=== PATIENT | female | born 1980 | race Caucasian/White ===

== ENCOUNTER 2018-07-25 12:16 | Emergency (ER) | payer OTHER ==
[~2018-07-25] VITALS: Ht 144.8 cm; Wt 74.4 kg
[2018-07-25 12:23] VITALS: Ht 144.8 cm; Wt 74.4 kg
[2018-07-25 13:14] LABS: BASOPHIL % 0.2 % (0-2)
[2018-07-25 13:17] LABS: PLATELET COUNT 388 x10^3mcL (130-400); RED CELL DISTRIBUTION WIDTH 16.1 % (11.5-14.5)
[2018-07-25 13:25] LABS: CALCIUM 8.7 mg/dL (8.5-10.1); CARBON DIOXIDE 23.8 mmol/L (21-32); CHLORIDE SERUM 105 mmol/L (98-107); CREATININE SERUM 0.6 mg/dL (0.6-1.0); GFR1 > 60 mL/min; GLUCOSE SERUM 90 mg/dL (74-106); POTASSIUM SERUM 3.9 mmol/L (3.5-5.1); SODIUM SERUM 139 mmol/L (136-145)
[2018-07-25 13:29] LABS: ALBUMIN 3.6 g/dL (3.4-5.0); ALKALINE PHOSPHATASE 56 U/L (46-116); ALT/SGPT 31 U/L (14-59); AST/SGOT 24 U/L (15-37); BILIRUBIN TOTAL 0.3 mg/dL (0.20-1.00); LIPASE 94 IU/L (73-393); TOTAL PROTEIN, SERUM 7.7 g/dL (6.4-8.2)
[2018-07-25 14:17] VITALS: BP 132/78
== END 2018-07-25 14:17 | disposition home or self-care (01) ==
LOC: ED 12:16
PROVIDERS: Emergency Medicine
DX: K29.70 Gastritis, unspecified, without bleeding (principal); Z98.890 Other specified postprocedural states
CPT/HCPCS: J1885; J2405; J3490; Q0092

== ENCOUNTER 2018-08-06 21:32 | Emergency (ER) | payer OTHER ==
[~2018-08-06] VITALS: Ht 149.9 cm; Wt 74.4 kg
[2018-08-06 21:40] VITALS: BP 139/96; Ht 149.9 cm; Wt 74.4 kg
== END 2018-08-06 23:01 | disposition home or self-care (01) ==
LOC: ED 21:32
DX: S80.01XA Contusion of right knee, initial encounter (principal); Z87.828 Personal history of other (healed) physical injury and trauma; W19.XXXA Unspecified fall, initial encounter; Y93.89 Activity, other specified; Y92.89 Other specified places as the place of occurrence of the external cause; Y99.8 Other external cause status